=== PATIENT | male | born 1975 | race Caucasian/White ===

== ENCOUNTER → 2021-03-26 07:21 | Outpatient (CLI) | payer MEDICARE, MEDICAID, SELFPAY ==
--- NOTE | ~2021-03-26 | MR_ITS ---
EXAMINATION: MR lumbar spine wo con DATE: 03/26/2021 08:26 INDICATION: Lumbar radiculopathy. TECHNIQUE: Magnetic resonance imaging (MRI) of the lumbar spine was performed without intravenous con trast. Sequences included sagittal T2-weighted FSE, sagittal T2-weighted FS FSE, sagittal T1-weighted FSE, and axial T2-weighted FSE. COMPARISON: Lumbar spine MRI 05/28/2017 FINDINGS: There is 7 degrees levocurvature of thoracic lumbar spine. There are chronic compression fr actures of T11 and L1 with changes of vertebroplasty. There is a hemangioma in T12 vertebral body. Th ere is mildly decreased disc height at T12-L1 and L1-L2. The distal spinal cord signal intensity is n ormal. The conus medullaris is at L1. The following disc levels are specifically discussed: L1-L2: The disc is bulging. There is mild bilateral facet joint osteoarthritis. There is mild bilater al neural foraminal stenosis. There is mild central canal stenosis. L2-L3: The disc does not extend beyond the endplate margin. There is mild bilateral facet joint osteo arthritis. There is no neural foraminal stenosis. There is no central canal stenosis. L3-L4: The disc does not extend beyond the endplate margin. There is mild bilateral facet joint osteo arthritis. There is no neural foraminal stenosis. There is no central canal stenosis. L4-L5: The disc is bulging. There is moderate bilateral facet joint osteoarthritis. There is mild mychal ateral neural foraminal stenosis. There is mild central canal stenosis. L5-S1: There is a central and right foraminal zone protrusion. There is moderate right and mild left facet joint osteoarthritis. There is moderate right neural foraminal stenosis. There is mild central canal stenosis. IMPRESSION: 1. Mild lumbar spondylosis, stable from 05/28/2017. Reviewed, dictated and finalized at location B. [facility]
== END ==
PROVIDERS: PCP Nurse Practitioner Family; Visit Provider Nurse Practitioner Family
DX: M47.26 Other spondylosis with radiculopathy, lumbar region (principal)
CPT/HCPCS: 72148